=== PATIENT | female | born 2000 | race Caucasian/White ===

== ENCOUNTER 2025-02-22 08:55 | Day surgery (SDC) | payer OTHER ==
[2025-02-22] MEDS: FERRIC CARBOXYMALTOSE 750 MG in SODIUM CHLORIDE 250 ML IVPB ONE (09:42)
[2025-02-22 15:55] VITALS: BP 108/75; PULSE 85; RESP 20; TEMP 97.9
== END 2025-02-22 10:40 | disposition home or self-care (01) ==
LOC: JONCNONCHE 08:55 → J7W 09:12 → JONCNONCHE 10:40
PROVIDERS: ATTEND Internal Medicine Hematology & Oncology
PROC: 3E033GC Introduction of Other Therapeutic Substance into Peripheral Vein, Percutaneous Approach (ICD-10-PCS; principal; 2025-02-22)
DX: D50.9 Iron deficiency anemia, unspecified (principal)
CPT/HCPCS: 96365; J1439